=== PATIENT | male | born 1980 | race Two or more races ===

== ENCOUNTER 2021-06-12 12:22 | Emergency (ER) | payer OTHER ==
[~2021-06-12] VITALS: Ht 177.8 cm; Wt 169.6 kg
== END 2021-06-13 14:58 | disposition home or self-care (01) ==
LOC: ER 12:22
DX: M79.89 Other specified soft tissue disorders (principal); R00.0 Tachycardia, unspecified; I87.2 Venous insufficiency (chronic) (peripheral); Z03.818 Encounter for observation for suspected exposure to other biological agents ruled out